=== PATIENT | male | born 1965 | race Two or more races ===

== ENCOUNTER 2018-07-17 08:37 | Inpatient (IN) | payer OTHER ==
[~2018-07-17] VITALS: Ht 175.3 cm; Wt 99.3 kg
[2018-07-17] MEDS ORDERED: ABILIFY2 MG ORAL (08:47)
--- NOTE | 2018-07-17 09:09 | Emergency Room Report ---
History of Present Illness General Chief Complaint: Chest Pain Source: Patient Present Illness HPI Patient presents with complaints of syncopal episode Reports that his bosses made him come to the hospital today Patient gives a history of coma and CVA 2 years ago patient reports being in a coma for 30 days at [facility] Patient reports being HIV positive also reports seeing his physician last week and was told to go to the emergency room Now patient reports that he was at another hospital he thinks [facility] for 3 days 2 weeks ago Patient also reports 1 other visit to another emergency room about a month ago however cannot give specifics Patient reports that after 3 days of hospitalization he was told to go home on both visits Currently denies headache Denies any chest pain However patient feels increased dyspnea with exertion Denies any back or flank pain Patient reports residual weakness on the left side from his stroke Allergies: Coded Allergies: No Known Allergies (Unverified , 07/17/18) Patient History Past Medical History: see triage record Pertinent Family History: none Reviewed Nursing Documentation: PMH: Agreed; PSxH: Agreed Nursing Documentation-PMH Hx Cardiac Problems: No - HIV History Of Psychiatric Problem: Yes - SCHIZO Review of Systems All Other Systems: negative except mentioned in HPI Physical Exam Vital Signs Date Time Temp Pulse Resp B/P (MAP) Pulse Ox O2 Delivery O2 Flow Rate FiO2 07/17/18 08:40 97.9 98 16 112/76 95 Room Air Sp02 EP Interpretation: reviewed, normal General Appearance: no apparent distress Head: normocephalic, atraumatic Eyes: bilateral eye PERRL, bilateral eye EOMI ENT: hearing grossly normal, normal pharynx, TMs + canals normal, uvula midline Neck: full range of motion, supple, no meningismus, no bony tend Respiratory: lungs clear, normal breath sounds, no rhonchi, no respiratory distress, no retraction, no accessory muscle use Cardiovascular #1: normal peripheral pulses, regular rate, rhythm, no edema, no gallop, no JVD, no murmur Gastrointestinal: normal bowel sounds, non tender, soft, no mass, no organomegaly, non-distended, no guarding, no hernia, no pulsatile mass, no rebound Genitourinary: no CVA tenderness Musculoskeletal: other - Some minimal weakness on the left upper extremity including feltmaker compared to right otherwise ambulates appropriately Neurologic: oriented x3, responsive, motor strength/tone normal, sensory intact Psychiatric: mood/affect normal Skin: normal color, no rash, warm/dry, palpation normal Lymphatic: normal inspection, no adenopathy Medical Decision Making Diagnostic Impression: Primary Impression: Syncope ER Course Patient is a fairly complex patient with multiple differential to consideration including but not limited to cardiac cardiopulmonary and vascular emergencies Patient's blood work reveals elevated lactic acid X-ray imaging does not show any acute disease Patient's lapse of consciousness was short duration there is no postictal state patient does not meet criteria for acute imaging Further hydration is provided and patient requires admission for further care Labs Test 07/17/18 09:20 07/17/18 09:30 07/17/18 09:45 07/17/18 10:55 Arterial Blood pH 7.456 (7.350-7.450) Arterial Blood Partial Pressure CO2 33.1 mmHg (35.0-45.0) Arterial Blood Partial Pressure O2 69.9 mmHg (75.0-100.0) Arterial Blood HCO3 22.8 mmol/L (22.0-26.0) Arterial Blood Oxygen Saturation 93.8 % (95-100) Arterial Blood Base Excess -0.3 (-2-2) White Blood Count 7.1 K/UL (4.8-10.8) Red Blood Count 6.38 M/UL (4.70-6.10) Hemoglobin 16.0 G/DL (14.2-18.0) Hematocrit 52.3 % (42.0-52.0) Mean Corpuscular Volume 82 FL (80-99) Mean Corpuscular Hemoglobin 25.0 PG (27.0-31.0) Mean Corpuscular Hemoglobin Concent 30.5 G/DL (32.0-36.0) Red Cell Distribution Width 17.1 % (11.6-14.8) Platelet Count 150 K/UL (150-450) Mean Platelet Volume 11.3 FL (6.5-10.1) Neutrophils (%) (Auto) 55.7 % (45.0-75.0) Lymphocytes (%) (Auto) 30.9 % (20.0-45.0) Monocytes (%) (Auto) 7.7 % (1.0-10.0) Eosinophils (%) (Auto) 3.1 % (0.0-3.0) Basophils (%) (Auto) 2.6 % (0.0-2.0) Sodium Level 144 MMOL/L (136-145) Potassium Level 4.2 MMOL/L (3.5-5.1) Chloride Level 108 MMOL/L (98-107) Carbon Dioxide Level 29 MMOL/L (21-32) Anion Gap 7 mmol/L (5-15) Blood Urea Nitrogen 21 mg/dL (7-18) Creatinine 1.5 MG/DL (0.55-1.30) Estimat Glomerular Filtration Rate 49.3 mL/min (>60) Glucose Level 81 MG/DL (74-106) Lactic Acid Level 4.00 mmol/L (0.4-2.0) 1.80 mmol/L (0.66-2.22) Calcium Level 9.1 MG/DL (8.5-10.1) Total Bilirubin 0.9 MG/DL (0.2-1.0) Aspartate Amino Transf (AST/SGOT) 37 U/L (15-37) Alanine Aminotransferase (ALT/SGPT) 46 U/L (12-78) Alkaline Phosphatase 187 U/L (46-116) Total Creatine Kinase 43 U/L (26-308) Creatine Kinase MB 2.1 NG/ML (0.0-3.6) Creatine Kinase MB Relative Index 4.8 Troponin I 0.023 ng/mL (0.000-0.056) Pro-B-Type Natriuretic Peptide 581 pg/mL (0-125) Total Protein 7.5 G/DL (6.4-8.2) Albumin 3.2 G/DL (3.4-5.0) Globulin 4.3 g/dL Albumin/Globulin Ratio 0.7 (1.0-2.7) Lipase 88 U/L (73-393) Urine Color Yellow Urine Appearance Clear Urine pH 6 (4.5-8.0) Urine Specific [place] 1.015 (1.005-1.035) Urine Protein Negative (NEGATIVE) Urine Glucose (UA) Negative (NEGATIVE) Urine Ketones Negative (NEGATIVE) Urine Blood Negative (NEGATIVE) Urine Nitrite Negative (NEGATIVE) Urine Bilirubin Negative (NEGATIVE) Urine Urobilinogen 1 MG/DL (0.0-1.0) Urine Leukocyte Esterase Negative (NEGATIVE) Urine Opiates Screen Negative (NEGATIVE) Urine Barbiturates Screen Negative (NEGATIVE) Phencyclidine (PCP) Screen Negative (NEGATIVE) Urine Amphetamines Screen Positive (NEGATIVE) Urine Benzodiazepines Screen Negative (NEGATIVE) Urine Cocaine Screen Negative (NEGATIVE) Urine Marijuana (THC) Screen Positive (NEGATIVE) EKG Diagnostic Results Rate: normal Rhythm: NSR ST Segments: no acute changes Rhythm Strip Diag. Results EP Interpretation: yes Rate: 85 Rhythm: NSR, no PVC's, no ectopy Chest X-Ray Diagnostic Results Chest X-Ray Diagnostic Results : Chest X-Ray Ordered: Yes # of Views/Limited/Complete: 1 View Indication: Chest Pain EP Interpretation: Yes Interpretation: no consolidation, no effusion, no pneumothorax Impression: No acute disease Electronically Signed by: Rosalia Santillan DO Last Vital Signs Date Time Temp Pulse Resp B/P (MAP) Pulse Ox O2 Delivery O2 Flow Rate FiO2 07/17/18 08:40 97.9 98 16 112/76 95 Room Air Status: improved Disposition: ADMITTED INPATIENT Condition: Serious Rosalia Santillan DO Jul 17, 2018 09:09
[2018-07-17 09:50] VITALS: BP 111/85
[2018-07-17 10:00] LABS: APPEARANCE,URINE CLEAR; BILIRUBIN, URINE NEGATIVE (NEGATIVE); COLOR,URINE YELLOW; GLUCOSE, URINE (UA) NEGATIVE (NEGATIVE); KETONES,URINE NEGATIVE (NEGATIVE); LEUKOCYTE ESTERASE ,URINE NEGATIVE (NEGATIVE); NITRITE,URINE NEGATIVE (NEGATIVE); PH,URINE 6 (4.5-8.0); PROTEIN,URINE NEGATIVE (NEGATIVE); UROBILINOGEN,URINE 1 MG/DL (0.0-1.0)
[2018-07-17 10:00] LABS: BASOPHILS % (AUTO) 2.6 % (0.0-2.0); EOSINOPHILS % (AUTO) 3.1 % (0.0-3.0); HEMATOCRIT 52.3 % (42.0-52.0); LYMPHOCYTES % (AUTO) 30.9 % (20.0-45.0); MEAN CORPUSCULAR VOLUME 82 FL (80-99); MONOCYTES % (AUTO) 7.7 % (1.0-10.0); NEUTROPHILS % (AUTO) 55.7 % (45.0-75.0); PLATELET COUNT 150 K/UL (150-450); RED BLOOD COUNT 6.38 M/UL (4.70-6.10); RED CELL DISTRIBUTION WIDTH 17.1 % (11.6-14.8); WHITE BLOOD COUNT 7.1 K/UL (4.8-10.8)
[2018-07-17 10:18] LABS: ANION GAP 7 mmol/L (5-15); BLOOD UREA NITROGEN 21 mg/dL (7-18); CALCIUM 9.1 MG/DL (8.5-10.1); CARBON DIOXIDE 29 MMOL/L (21-32); CHLORIDE 108 MMOL/L (98-107); CREATININE 1.5 MG/DL (0.55-1.30); POTASSIUM 4.2 MMOL/L (3.5-5.1); SODIUM 144 MMOL/L (136-145)
[2018-07-17 10:39] LABS: ALANINE AMINOTRANSFERASE 46 U/L (12-78); ALBUMIN 3.2 G/DL (3.4-5.0); ALBUMIN/GLOBULIN RATIO 0.7 (1.0-2.7); ALKALINE PHOSPHATASE 187 U/L (46-116); ASPARTATE AMINO TRANSFERASE 37 U/L (15-37); BILIRUBIN,TOTAL 0.9 MG/DL (0.2-1.0); CKMB 2.1 NG/ML (0.0-3.6); CREATINE KINASE 43 U/L (26-308)
[2018-07-17 11:00] VITALS: BP 128/87
--- NOTE | 2018-07-17 11:02 | Diagnostic Imaging Report ---
Indication: Shortness of breath Technique: One view of the chest Comparison: none Findings: Lungs and pleural spaces are clear. Heart size is normal Impression: No acute process
[2018-07-17 11:59] VITALS: BP 122/68
[2018-07-17 13:15] VITALS: BP 124/106
[2018-07-17] MEDS ORDERED: NEURONTIN300 MG ORAL (14:06)
[2018-07-17] MEDS ORDERED: REMERON15 M1 ORAL (14:06)
[2018-07-17] MEDS ORDERED: Acetaminophen 500mg (ES) tab ORAL PRN (14:30)
[2018-07-17 16:00] VITALS: BP 127/98
--- NOTE | 2018-07-17 17:10 | Cardiac Electrophysiology PN ---
Subjective Subjective [id number] Objective Last 24 Hour Vital Signs Date Time Temp Pulse Resp B/P (MAP) Pulse Ox O2 Delivery O2 Flow Rate FiO2 07/17/18 16:00 97.7 94 20 127/98 (108) 96 07/17/18 13:30 Room Air 07/17/18 13:25 98.7 87 16 121/68 100 Room Air 07/17/18 13:15 97.2 91 20 124/106 (112) 96 07/17/18 11:59 98.1 80 16 122/68 98 Room Air 07/17/18 11:00 97.0 80 16 128/87 99 Room Air 07/17/18 09:50 98 22 Room Air 07/17/18 09:50 97.0 98 22 111/85 99 Room Air 07/17/18 08:40 97.9 98 16 112/76 95 Room Air Laboratory Tests Test 07/17/18 09:20 07/17/18 09:30 07/17/18 09:45 07/17/18 10:55 Arterial Blood pH 7.456 (7.350-7.450) Arterial Blood Partial Pressure CO2 33.1 mmHg (35.0-45.0) L Arterial Blood Partial Pressure O2 69.9 mmHg (75.0-100.0) L Arterial Blood HCO3 22.8 mmol/L (22.0-26.0) Arterial Blood Oxygen Saturation 93.8 % (95-100) L Arterial Blood Base Excess -0.3 (-2-2) Robinson Test Pending White Blood Count 7.1 K/UL (4.8-10.8) Red Blood Count 6.38 M/UL (4.70-6.10) H Hemoglobin 16.0 G/DL (14.2-18.0) Hematocrit 52.3 % (42.0-52.0) H Mean Corpuscular Volume 82 FL (80-99) Mean Corpuscular Hemoglobin 25.0 PG (27.0-31.0) L Mean Corpuscular Hemoglobin Concent 30.5 G/DL (32.0-36.0) L Red Cell Distribution Width 17.1 % (11.6-14.8) H Platelet Count 150 K/UL (150-450) Mean Platelet Volume 11.3 FL (6.5-10.1) H Neutrophils (%) (Auto) 55.7 % (45.0-75.0) Lymphocytes (%) (Auto) 30.9 % (20.0-45.0) Monocytes (%) (Auto) 7.7 % (1.0-10.0) Eosinophils (%) (Auto) 3.1 % (0.0-3.0) H Basophils (%) (Auto) 2.6 % (0.0-2.0) H Sodium Level 144 MMOL/L (136-145) Potassium Level 4.2 MMOL/L (3.5-5.1) Chloride Level 108 MMOL/L (98-107) H Carbon Dioxide Level 29 MMOL/L (21-32) Anion Gap 7 mmol/L (5-15) Blood Urea Nitrogen 21 mg/dL (7-18) H Creatinine 1.5 MG/DL (0.55-1.30) H Estimat Glomerular Filtration Rate 49.3 mL/min (>60) Glucose Level 81 MG/DL (74-106) Lactic Acid Level 4.00 mmol/L (0.4-2.0) H 1.80 mmol/L (0.66-2.22) Calcium Level 9.1 MG/DL (8.5-10.1) Total Bilirubin 0.9 MG/DL (0.2-1.0) Aspartate Amino Transf (AST/SGOT) 37 U/L (15-37) Alanine Aminotransferase (ALT/SGPT) 46 U/L (12-78) Alkaline Phosphatase 187 U/L (46-116) H Total Creatine Kinase 43 U/L (26-308) Creatine Kinase MB 2.1 NG/ML (0.0-3.6) Creatine Kinase MB Relative Index 4.8 Troponin I 0.023 ng/mL (0.000-0.056) Pro-B-Type Natriuretic Peptide 581 pg/mL (0-125) H Total Protein 7.5 G/DL (6.4-8.2) Albumin 3.2 G/DL (3.4-5.0) L Globulin 4.3 g/dL Albumin/Globulin Ratio 0.7 (1.0-2.7) L Lipase 88 U/L (73-393) Urine Color Yellow Urine Appearance Clear Urine pH 6 (4.5-8.0) Urine Specific [place] 1.015 (1.005-1.035) Urine Protein Negative (NEGATIVE) Urine Glucose (UA) Negative (NEGATIVE) Urine Ketones Negative (NEGATIVE) Urine Blood Negative (NEGATIVE) Urine Nitrite Negative (NEGATIVE) Urine Bilirubin Negative (NEGATIVE) Urine Urobilinogen 1 MG/DL (0.0-1.0) H Urine Leukocyte Esterase Negative (NEGATIVE) Urine Opiates Screen Negative (NEGATIVE) Urine Barbiturates Screen Negative (NEGATIVE) Phencyclidine (PCP) Screen Negative (NEGATIVE) Urine Amphetamines Screen Positive (NEGATIVE) H Urine Benzodiazepines Screen Negative (NEGATIVE) Urine Cocaine Screen Negative (NEGATIVE) Urine Marijuana (THC) Screen Positive (NEGATIVE) H Microbiology Date/Time Source Procedure Growth Status 07/17/18 09:30 Rectum Received Basim Adkins MD Jul 17, 2018 17:10
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
[2018-07-17 20:00] VITALS: BP 121/87
--- NOTE | 2018-07-17 21:00 | Consultation ---
DATE OF CONSULTATION: 07/17/2018 CARDIOLOGY CONSULTATION CONSULTING PHYSICIAN: Basim Adkins M.D. REFERRING PHYSICIAN: Rosalia Alexander M.D. REASON FOR CONSULTATION: Syncope. HISTORY OF PRESENT ILLNESS: The patient is a 53-year-old gentleman with history of HIV with undetectable viral load as well as history of CVA for which he was in a coma for about a month at [facility] two years ago. The patient came to the emergency room with recurrent episodes of syncope. The patient also has left-sided weakness because of his prior stroke. The patient stated that come to the hospital after he had a syncopal episode. The patient was evaluated in the emergency room. Cardiology consultation was obtained for further evaluation and management. REVIEW OF SYSTEMS: Negative other than what was mentioned in history of present illness. PAST MEDICAL HISTORY: As mentioned above. FAMILY HISTORY: Noncontributory. SOCIAL HISTORY: He lives at home. Does not smoke or drink alcohol. PHYSICAL EXAMINATION: VITAL SIGNS: Blood pressure is 127/90, pulse 94, respirations 18, and he is afebrile. HEAD AND NECK: Showed no JVD. LUNGS: Clear. CARDIOVASCULAR: Shows regular S1 and S2 with no gallop or murmur. ABDOMEN: Soft. EXTREMITIES: No pitting edema. LABORATORY DATA: White count 7.1, hematocrit 16, hematocrit 52, and platelet count 150. Sodium is 144, potassium 4.2, BUN 21, and creatinine 1.5. His first troponin is negative. ASSESSMENT AND PLAN: 1. Recurrent syncopal episodes. We will watch the patient on telemetry, get an echocardiogram and carotid duplex. Neuro evaluation is also pending. 2. Human immunodeficiency virus, on anti-retroviral therapy. 3. History of psychosis, on Abilify, Remeron, and Neurontin. 4. 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 Thank you very much, Dr. Alexander, for allowing me to participate in the care of this patient. Please do not hesitate to contact me for any questions regarding my evaluation. Basim Adkins M.D. : DAREN JOB#: [id number] CC:
[2018-07-18] VITALS: BP 103/70
[2018-07-18] MEDS ORDERED: ATRIPLA TABLET1 EAC1 ORAL (03:40)
[2018-07-18 04:00] VITALS: BP 110/80
[2018-07-18 08:00] VITALS: BP 126/92
--- NOTE | 2018-07-18 10:51 | Consultation ---
History of Present Illness General Chief Complaint: Chest Pain Present Illness HPI the pt is a 53 yo male who has a history of anxiety. depression, seizures, CVA, syncopal episode and elevated troponin. the pt pw anxiety, depressed mood, anhedonia, insomnia and low energy. The pt is not suicidal or homicidal. the stated that he has been more anxious than usual. The pt is not psychotic/manic. Allergies: Coded Allergies: No Known Allergies (Unverified , 07/17/18) Medication History Scheduled Aripiprazole* (Abilify*), 5 MG ORAL DAILY, (Reported) Efavirenz/Emtricitab/Tenofovir (Atripla), 1 TAB ORAL DAILY, (Reported) Gabapentin (Neurontin), 300 MG ORAL THREE TIMES A DAY, (Reported) Mirtazapine (Remeron), 5 MG ORAL BEDTIME, (Reported) Patient History History Provided By: Patient, Medical Record, PMD Healthcare decision maker sister Resuscitation status Full Code Advanced Directive on File Past Medical/Surgical History Past Medical/Surgical History: (1) Syncope Review of Systems Psychiatric: Reports: anxiety, depressed feelings, emotional problems Physical Exam General Appearance: alert, moderate distress, agitated Neurologic: oriented x 3, responsive, depressed affect Last 24 Hour Vital Signs Date Time Temp Pulse Resp B/P (MAP) Pulse Ox O2 Delivery O2 Flow Rate FiO2 07/18/18 08:00 97.2 88 18 126/92 (103) 95 07/18/18 04:00 96.8 74 18 110/80 (90) 96 07/18/18 03:19 97 07/18/18 00:00 97.2 91 17 103/70 (81) 96 07/17/18 23:40 91 07/17/18 21:00 Nasal Cannula 2.0 07/17/18 20:00 97.2 74 17 121/87 (98) 96 07/17/18 19:34 92 07/17/18 16:35 88 07/17/18 16:00 97.7 94 20 127/98 (108) 96 07/17/18 13:30 Room Air 07/17/18 13:25 98.7 87 16 121/68 100 Room Air 07/17/18 13:15 97.2 91 20 124/106 (112) 96 07/17/18 11:59 98.1 80 16 122/68 98 Room Air 07/17/18 11:00 97.0 80 16 128/87 99 Room Air Intake and Output 07/17/18 07/18/18 19:00 07:00 Intake Total 120 ml Output Total 150 ml Balance 120 ml -150 ml Intake Oral 120 ml Output Urine Total 150 ml # Voids 3 Laboratory Tests Test 07/17/18 10:55 07/18/18 06:22 Lactic Acid Level 1.80 mmol/L (0.66-2.22) Thyroid Stimulating Hormone (TSH) 2.677 uiU/mL (0.358-3.740) Free Thyroxine 1.18 NG/DL (0.76-1.46) Height (Feet): 5 Height (Inches): 9.00 Weight (Pounds): 219 Medications Current Medications Medications (Trade) Dose Ordered Sig/Mary Ann Route PRN Reason Start Time Stop Time Status Last Admin Dose Admin Acetaminophen (Tylenol) 500 mg Q4H PRN ORAL Mild Pain/Temp > 100.5 07/17/18 14:30 08/16/18 14:29 07/18/18 03:38 Al Hydroxide/Mg Hydroxide (Mylanta) 30 ml Q4H PRN ORAL GERD 07/18/18 06:45 08/17/18 06:44 Aripiprazole (Abilify) 5 mg DAILY ORAL 07/18/18 09:00 08/17/18 08:59 07/18/18 08:10 Gabapentin (Neurontin) 300 mg THREE TIMES A DAY ORAL 07/17/18 18:00 08/16/18 17:59 07/18/18 08:10 Lansoprazole (Prevacid) 30 mg DAILY ORAL 07/18/18 09:00 08/17/18 08:59 07/18/18 08:10 Mirtazapine (Remeron) 5 mg BEDTIME ORAL 07/17/18 21:00 08/16/18 20:59 UNV Assessment/Plan Problem List: (1) MDD (major depressive disorder), recurrent episode, moderate ICD Codes: F33.1 - Major depressive disorder, recurrent, moderate SNOMED: 72773333, 086779176 (2) Anxiety disorder ICD Codes: F41.9 - Anxiety disorder, unspecified SNOMED: 421814367 Assessment/Plan Abilify 15mg po qam Remeron 15mg po qhs Ativan po q 6hr prn anxiety the pt was provided ro/Angela Knight MD Jul 18, 2018 10:51
[2018-07-18] MEDS ORDERED: LORazepam 1mg tab ORAL PRN (11:00)
--- NOTE | 2018-07-18 11:40 | Consultation ---
Consult Note Consult Note I was asked to eval this patient at the request of Dr Alexander Admitted for Syncope Has Cr 1.5 has amphetamines and MJ in urine Patient presents with complaints of syncopal episode Reports that his bosses made him come to the hospital today Patient gives a history of coma and CVA 2 years ago patient reports being in a coma for 30 days at [facility] Patient reports being HIV positive also reports seeing his physician last week and was told to go to the emergency room Now patient reports that he was at another hospital he thinks [facility] for 3 days 2 weeks ago Patient also reports 1 other visit to another emergency room about a month ago however cannot give specifics Patient reports that after 3 days of hospitalization he was told to go home on both visits Currently denies headache Denies any chest pain However patient feels increased dyspnea with exertion Denies any back or flank pain Patient reports residual weakness on the left side from his stroke No Known Allergies (Unverified , 07/17/18) Assessment/Plan Renal failure, Likely Dehydration Recurrent syncope rule out Sz disorder Obese HIV status h/o Psychosis s/p CVA with left melvin ? Multi drug abuse Hydrate EEG Monitor renal parameters per orders Rob Mitchell MD Jul 18, 2018 11:40
[2018-07-18 12:00] VITALS: BP 127/95
[2018-07-18] MEDS: D5 1/2NS 1,000 ML IV SCH ×3 (13:22→23:35)
--- NOTE | 2018-07-18 14:52 | Cardiac Electrophysiology PN ---
Assessment/Plan Assessment/Plan 1. Recurrent syncopal episodes. No arrhythmias on telemetry, Echocardiogram and carotid duplex were negative. Orthostatic vital signs were negative. Neuro evaluation is pending. 2. Human immunodeficiency virus, on anti-retroviral therapy. 3. History of psychosis, on Abilify, Remeron, and Neurontin. 4. 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 DW Dr Alexander Subjective Subjective Still complains of syncope but no arrhythmias on tele.Echo Nl EF. Orthostatic vitals were negative Objective Last 24 Hour Vital Signs Date Time Temp Pulse Resp B/P (MAP) Pulse Ox O2 Delivery O2 Flow Rate FiO2 07/18/18 14:15 94 102 137 07/18/18 12:00 97.9 94 18 127/95 (106) 96 07/18/18 11:42 88 07/18/18 09:00 Room Air 07/18/18 08:00 97.2 88 18 126/92 (103) 95 07/18/18 07:57 98 07/18/18 04:00 96.8 74 18 110/80 (90) 96 07/18/18 03:19 97 07/18/18 00:00 97.2 91 17 103/70 (81) 96 07/17/18 23:40 91 07/17/18 21:00 Nasal Cannula 2.0 07/17/18 20:00 97.2 74 17 121/87 (98) 96 07/17/18 19:34 92 07/17/18 16:35 88 07/17/18 16:00 97.7 94 20 127/98 (108) 96 Intake and Output 07/17/18 07/18/18 19:00 07:00 Intake Total 120 ml Output Total 150 ml Balance 120 ml -150 ml Intake Oral 120 ml Output Urine Total 150 ml # Voids 3 Laboratory Tests Test 07/18/18 06:22 C-Reactive Protein, Quantitative < 0.4 mg/dL (0.00-0.90) Thyroid Stimulating Hormone (TSH) 2.677 uiU/mL (0.358-3.740) Free Thyroxine 1.18 NG/DL (0.76-1.46) Microbiology Date/Time Source Procedure Growth Status 07/17/18 09:30 Rectum Received Objective HEAD AND NECK: No JVD. LUNGS: Clear. CARDIOVASCULAR: Shows regular S1 and S2 with no gallop or murmur. ABDOMEN: Soft. EXTREMITIES: No pitting edema. Basim Adkins MD Jul 18, 2018 14:51
--- NOTE | 2018-07-18 15:41 | General Progress Note ---
Assessment/Plan Problem List: (1) Syncope ICD Codes: R55 - Syncope and collapse SNOMED: 374477373 (2) Anxiety disorder ICD Codes: F41.9 - Anxiety disorder, unspecified SNOMED: 695121680 (3) MDD (major depressive disorder), recurrent episode, moderate ICD Codes: F33.1 - Major depressive disorder, recurrent, moderate SNOMED: 40401436, 525647046 Status: progressing Assessment/Plan syncope recurrent awaiting input from neurologist anxiety Subjective ROS Limited/Unobtainable: Yes Constitutional: Reports: no symptoms HEENT: Reports: no symptoms Allergies: Coded Allergies: No Known Allergies (Unverified , 07/17/18) Objective Last 24 Hour Vital Signs Date Time Temp Pulse Resp B/P (MAP) Pulse Ox O2 Delivery O2 Flow Rate FiO2 07/18/18 14:15 94 102 137 07/18/18 12:00 97.9 94 18 127/95 (106) 96 07/18/18 11:42 88 07/18/18 09:00 Room Air 07/18/18 08:00 97.2 88 18 126/92 (103) 95 07/18/18 07:57 98 07/18/18 04:00 96.8 74 18 110/80 (90) 96 07/18/18 03:19 97 07/18/18 00:00 97.2 91 17 103/70 (81) 96 07/17/18 23:40 91 07/17/18 21:00 Nasal Cannula 2.0 07/17/18 20:00 97.2 74 17 121/87 (98) 96 07/17/18 19:34 92 07/17/18 16:35 88 07/17/18 16:00 97.7 94 20 127/98 (108) 96 Intake and Output 07/17/18 07/18/18 19:00 07:00 Intake Total 120 ml Output Total 150 ml Balance 120 ml -150 ml Intake Oral 120 ml Output Urine Total 150 ml # Voids 3 Laboratory Tests 07/18/18 06:22: C-Reactive Protein, Quantitative < 0.4, Thyroid Stimulating Hormone (TSH) 2.677 , Free Thyroxine 1.18 Height (Feet): 5 Height (Inches): 9.00 Weight (Pounds): 219 Neck: supple Cardiovascular: normal rate Respiratory/Chest: lungs clear Abdomen: soft Hadadz,Ali MD Jul 18, 2018 15:41
--- NOTE | 2018-07-18 15:49 | Cardiology Report ---
APPROVED REPORT EXAM: Two-dimensional and M-mode echocardiogram with Doppler and color Doppler. INDICATION Syncope M-Mode DIMENSIONS IVSd1.0 (0.7-1.1cm)Left Atrium (MM)3.9 (1.6-4.0cm) LVDd3.6 (3.5-5.6cm)Aortic Root3.6 (2.0-3.7cm) PWd1.3 (0.7-1.1cm)Aortic Cusp Exc.1.9 (1.5-2.0cm) LVDs2.1 (2.5-4.0cm) PWs1.4 cm Technically difficult study due to poor acoustical windows. Normal left ventricular chamber size, systolic function and wall motion to extent visualized. This study precludes full analysis of LV segmental wall motion. Left ventricular ejection fraction estimated to be 50-55%. No evidence of left ventricular hypertrophy. No evidence of pericardial effusion. Left atrial size is within normal limits. Right atrial size is moderately enlarged. Right ventricular chamber sizes is within normal limits. Focal aortic valve sclerosis with adequate cusp excursion. Thickened mitral valve leaflets with normal excursion. Mitral annulus and aortic root calcification. Pulmonic valve not well visualized. Normal tricuspid valve structure. IVC dilated at 2.9 cm with slight physiologic collapse, suggestive of increased RA pressure. A color flow and spectral Doppler study was performed and revealed: No aortic insufficiency. Trace mitral regurgitation. Mitral diastolic velocities suggest reduced left ventricular relaxation c/w mild LV diastolic dysfunction (Grade I) Moderate to severe tricuspid regurgitation. Tricuspid systolic velocities suggests peak right ventricular systolic pressure of 94 mmHg, consistent with severe pulmonary hypertension.
--- NOTE | 2018-07-18 15:50 | Cardiology Report ---
APPROVED REPORT EKG Measurement Heart [id number] [id number] Normal sinus rhythm Left axis deviation Prolonged QT Abnormal ECG
[2018-07-18 16:00] VITALS: BP 129/93
--- NOTE | 2018-07-18 16:09 | Cardiology Report ---
APPROVED REPORT EKG Measurement Heart [id number] [id number] Normal sinus rhythm Incomplete right bundle branch block Left anterior fascicular block Prolonged QT Abnormal ECG
[2018-07-18 20:00] VITALS: BP 128/94
[2018-07-18] MEDS: Tamsulosin 0.4mg cap ORAL SCH (20:59)
[2018-07-19] VITALS: BP 140/75
[2018-07-19 04:00] VITALS: BP 117/81
[2018-07-19 08:00] VITALS: BP 124/95
[2018-07-19] MEDS: D5 1/2NS 1,000 ML IV SCH ×2 (08:32→17:08)
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
--- NOTE | 2018-07-19 11:12 | General Progress Note ---
Assessment/Plan Problem List: (1) MDD (major depressive disorder), recurrent episode, moderate ICD Codes: F33.1 - Major depressive disorder, recurrent, moderate SNOMED: 21451914, 479703493 (2) Anxiety disorder ICD Codes: F41.9 - Anxiety disorder, unspecified SNOMED: 855714846 Status: stable Assessment/Plan Abilify 15mg po qam Remeron 15mg po qhs Ativan po q 6hr prn anxiety the pt was provided ro/st the script was left in the chart for the pt. Subjective Neurologic/Psychiatric: Reports: anxiety, depressed, emotional problems Allergies: Coded Allergies: No Known Allergies (Unverified , 07/17/18) Subjective The pt is doing better. He is less anxious. The pt sleep and appetite better. No si/hi. Objective Last 24 Hour Vital Signs Date Time Temp Pulse Resp B/P (MAP) Pulse Ox O2 Delivery O2 Flow Rate FiO2 07/19/18 09:00 Room Air 07/19/18 08:00 97.5 94 18 124/95 (105) 96 07/19/18 07:23 85 07/19/18 04:00 86 07/19/18 04:00 88 97 94 07/19/18 04:00 97.6 86 18 117/81 (93) 95 07/19/18 00:00 88 07/19/18 00:00 98.0 88 18 140/75 (96) 96 07/18/18 21:00 Room Air 07/18/18 20:00 94 07/18/18 20:00 98.0 94 18 128/94 (105) 96 07/18/18 16:00 97.8 91 18 129/93 (105) 96 07/18/18 15:15 91 07/18/18 14:15 94 102 137 07/18/18 12:00 97.9 94 18 127/95 (106) 96 07/18/18 11:42 88 Intake and Output 07/18/18 07/19/18 19:00 07:00 Intake Total 560 ml 1100 ml Output Total 1450 ml Balance -890 ml 1100 ml Intake Oral 360 ml IV Total 200 ml 1100 ml Output Urine Total 1450 ml # Voids 2 Height (Feet): 5 Height (Inches): 9.00 Weight (Pounds): 219 General Appearance: WD/WN, no apparent distress, alert, overweight Neurologic: alert, oriented x 3, responsive, depressed affect Angela Coleman MD Jul 19, 2018 11:12
[2018-07-19 11:50] LABS: BASOPHILS % (AUTO) 2.1 % (0.0-2.0); EOSINOPHILS % (AUTO) 4.5 % (0.0-3.0); HEMATOCRIT 44.8 % (42.0-52.0); HEMOGLOBIN 14.1 G/DL (14.2-18.0); LYMPHOCYTES % (AUTO) 30.4 % (20.0-45.0); MEAN CORPUSCULAR VOLUME 81 FL (80-99); MONOCYTES % (AUTO) 10.3 % (1.0-10.0); NEUTROPHILS % (AUTO) 52.7 % (45.0-75.0); PLATELET COUNT 101 K/UL (150-450); RED BLOOD COUNT 5.51 M/UL (4.70-6.10); RED CELL DISTRIBUTION WIDTH 17.1 % (11.6-14.8)
[2018-07-19 12:00] VITALS: BP 121/89
--- NOTE | 2018-07-19 12:15 | Consultation ---
DATE OF CONSULTATION: 07/18/2018 ADDENDUM: The patient is also on Flomax, which can cause syncope. In fact, it can cause orthostatic hypotension or usually does it after the first dose. As long as the dehydration, any other risk factors for syncope may be significant. Asael Glasgow MD DR: RYANNE JOB#: [id number] CC:
--- NOTE | 2018-07-19 12:24 | General Progress Note ---
Assessment/Plan Problem List: (1) Syncope ICD Codes: R55 - Syncope and collapse SNOMED: 773926241 (2) Anxiety disorder ICD Codes: F41.9 - Anxiety disorder, unspecified SNOMED: 962906739 (3) MDD (major depressive disorder), recurrent episode, moderate ICD Codes: F33.1 - Major depressive disorder, recurrent, moderate SNOMED: 54094777, 210308365 Status: progressing Assessment/Plan syncope recurrent awaiting input from neurologist no arrythmia eeg is done Subjective ROS Limited/Unobtainable: Yes HEENT: Reports: no symptoms Cardiovascular: Reports: no symptoms Allergies: Coded Allergies: No Known Allergies (Unverified , 07/17/18) Objective Last 24 Hour Vital Signs Date Time Temp Pulse Resp B/P (MAP) Pulse Ox O2 Delivery O2 Flow Rate FiO2 07/19/18 09:00 Room Air 07/19/18 08:00 97.5 94 18 124/95 (105) 96 07/19/18 07:23 85 07/19/18 04:00 86 07/19/18 04:00 88 97 94 07/19/18 04:00 97.6 86 18 117/81 (93) 95 07/19/18 00:00 88 07/19/18 00:00 98.0 88 18 140/75 (96) 96 07/18/18 21:00 Room Air 07/18/18 20:00 94 07/18/18 20:00 98.0 94 18 128/94 (105) 96 07/18/18 16:00 97.8 91 18 129/93 (105) 96 07/18/18 15:15 91 07/18/18 14:15 94 102 137 Intake and Output 07/18/18 07/19/18 19:00 07:00 Intake Total 560 ml 1100 ml Output Total 1450 ml Balance -890 ml 1100 ml Intake Oral 360 ml IV Total 200 ml 1100 ml Output Urine Total 1450 ml # Voids 2 Laboratory Tests 07/19/18 11:23: White Blood Count 5.0, Red Blood Count 5.51, Hemoglobin 14.1L, Hematocrit 44.8, Mean Corpuscular Volume 81, Mean Corpuscular Hemoglobin 25.6L, Mean Corpuscular Hemoglobin Concent 31.4L, Red Cell Distribution Width 17.1H, Platelet Count 101L , Mean Platelet Volume 11.8H, Neutrophils (%) (Auto) 52.7, Lymphocytes (%) (Auto ) 30.4, Monocytes (%) (Auto) 10.3H, Eosinophils (%) (Auto) 4.5H, Basophils (%) ( Auto) 2.1H, Sodium Level [Pending], Potassium Level [Pending], Chloride Level [ Pending], Carbon Dioxide Level [Pending], Blood Urea Nitrogen [Pending], Creatinine [Pending], Estimat Glomerular Filtration Rate [Pending], Glucose Level [Pending], Hemoglobin A1c [Pending], Uric Acid [Pending], Calcium Level [ Pending], Phosphorus Level [Pending], Magnesium Level [Pending], Total Bilirubin [Pending], Gamma Glutamyl Transpeptidase [Pending], Aspartate Amino Transf (AST/SGOT) [Pending], Alanine Aminotransferase (ALT/SGPT) [Pending], Alkaline Phosphatase [Pending], Total Creatine Kinase [Pending], Troponin I [ Pending], Pro-B-Type Natriuretic Peptide [Pending], Total Protein [Pending], Albumin [Pending], Globulin [Pending], Triglycerides Level [Pending], Cholesterol Level [Pending], LDL Cholesterol [Pending], HDL Cholesterol [Pending ], Cholesterol/HDL Ratio [Pending], Vitamin B12 Level [Pending], Folate [Pending ], Thyroid Stimulating Hormone (TSH) [Pending] Height (Feet): 5 Height (Inches): 9.00 Weight (Pounds): 219 Neck: supple Cardiovascular: normal rate Respiratory/Chest: lungs clear Abdomen: soft Rosalia Alexander MD Jul 19, 2018 12:24
[2018-07-19] MEDS ORDERED: Albuterol/Ipratropium 3ml neb HHN PRN (12:30)
[2018-07-19 13:09] LABS: ALANINE AMINOTRANSFERASE 44 U/L (12-78); ALBUMIN 2.9 G/DL (3.4-5.0); ALBUMIN/GLOBULIN RATIO 0.8 (1.0-2.7); ALKALINE PHOSPHATASE 155 U/L (46-116); ANION GAP 9 mmol/L (5-15); ASPARTATE AMINO TRANSFERASE 38 U/L (15-37); BILIRUBIN,TOTAL 1.3 MG/DL (0.2-1.0); BLOOD UREA NITROGEN 12 mg/dL (7-18); CALCIUM 8.8 MG/DL (8.5-10.1); CARBON DIOXIDE 25 MMOL/L (21-32); CHLORIDE 109 MMOL/L (98-107); CHOLESTEROL 124 MG/DL (< 200); CREATINE KINASE 46 U/L (26-308); CREATININE 1.3 MG/DL (0.55-1.30); GAMMA GLUTAMYL TRANSPEPTIDASE 221 U/L (5-85); HDL CHOLESTEROL 37 MG/DL (40-60); PHOSPHORUS 3.1 MG/DL (2.5-4.9); SODIUM 143 MMOL/L (136-145); TRIGLYCERIDES 62 MG/DL (30-150)
[2018-07-19 13:11] LABS: BILIRUBIN,DIRECT 0.3 MG/DL (0.0-0.3)
--- NOTE | 2018-07-19 14:16 | Nephrology Progress Note ---
Assessment/Plan Problem List: (1) Syncope (2) Dehydration (3) Drug abuse (4) HIV disease Assessment Renal failure, Likely Dehydration normalized Recurrent syncope rule out Sz disorder Obese HIV status h/o Psychosis s/p CVA with left melvin ? Multi drug abuse Plan Hydrate EEG WNL Carotid duplex pending Monitor renal parameters per orders per psych Objective Objective Last 24 Hour Vital Signs Date Time Temp Pulse Resp B/P (MAP) Pulse Ox O2 Delivery O2 Flow Rate FiO2 07/19/18 12:00 88 07/19/18 12:00 97.2 90 18 121/89 (100) 95 07/19/18 09:00 Room Air 07/19/18 08:00 97.5 94 18 124/95 (105) 96 07/19/18 07:23 85 07/19/18 04:00 86 07/19/18 04:00 88 97 94 07/19/18 04:00 97.6 86 18 117/81 (93) 95 07/19/18 00:00 88 07/19/18 00:00 98.0 88 18 140/75 (96) 96 07/18/18 21:00 Room Air 07/18/18 20:00 94 07/18/18 20:00 98.0 94 18 128/94 (105) 96 07/18/18 16:00 97.8 91 18 129/93 (105) 96 07/18/18 15:15 91 07/18/18 14:15 94 102 137 Intake and Output 07/18/18 07/19/18 19:00 07:00 Intake Total 560 ml 1100 ml Output Total 1450 ml Balance -890 ml 1100 ml Intake Oral 360 ml IV Total 200 ml 1100 ml Output Urine Total 1450 ml # Voids 2 Laboratory Tests 07/19/18 11:23: White Blood Count 5.0, Red Blood Count 5.51, Hemoglobin 14.1L, Hematocrit 44.8, Mean Corpuscular Volume 81, Mean Corpuscular Hemoglobin 25.6L, Mean Corpuscular Hemoglobin Concent 31.4L, Red Cell Distribution Width 17.1H, Platelet Count 101L , Mean Platelet Volume 11.8H, Neutrophils (%) (Auto) 52.7, Lymphocytes (%) (Auto ) 30.4, Monocytes (%) (Auto) 10.3H, Eosinophils (%) (Auto) 4.5H, Basophils (%) ( Auto) 2.1H, Sodium Level 143, Potassium Level 4.0, Chloride Level 109H, Carbon Dioxide Level 25, Anion Gap 9, Blood Urea Nitrogen 12, Creatinine 1.3, Estimat Glomerular Filtration Rate 58.2, Glucose Level 96, Hemoglobin A1c [Pending], Uric Acid 5.4, Calcium Level 8.8, Phosphorus Level 3.1, Magnesium Level 1.8, Total Bilirubin 1.3H, Direct Bilirubin 0.3, Gamma Glutamyl Transpeptidase 221H, Aspartate Amino Transf (AST/SGOT) 38H, Alanine Aminotransferase (ALT/SGPT) 44, Alkaline Phosphatase 155H, Total Creatine Kinase 46, Troponin I 0.021, Pro-B- Type Natriuretic Peptide 550H, Total Protein 6.7, Albumin 2.9L, Globulin 3.8, Albumin/Globulin Ratio 0.8L, Triglycerides Level 62, Cholesterol Level 124, LDL Cholesterol 88, HDL Cholesterol 37L, Cholesterol/HDL Ratio 3.4, Vitamin B12 Level 832, Folate 18.8, Thyroid Stimulating Hormone (TSH) 1.492 Height (Feet): 5 Height (Inches): 9.00 Weight (Pounds): 219 Rob Mitchell MD Jul 19, 2018 14:16
[2018-07-19 16:00] VITALS: BP 111/79
[2018-07-19] MEDS: Albuterol/Ipratropium 3ml neb HHN SCH ×3 (16:38→23:48)
--- NOTE | 2018-07-19 17:19 | Cardiac Electrophysiology PN ---
Assessment/Plan Assessment/Plan 1. Recurrent syncopal episodes. No arrhythmias on telemetry, Echocardiogram and carotid duplex were negative. Orthostatic vital signs were negative. Neuro evaluation in progress with Dr Glasgow 2. Human immunodeficiency virus, on anti-retroviral therapy. 3. Schizophrenia, on Abilify, Remeron, and Neurontin. 4. 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 DW Dr Glasgow and RN Subjective Subjective No arrhythmias on tele.Echo Nl EF. Orthostatic vitals were negative Objective Last 24 Hour Vital Signs Date Time Temp Pulse Resp B/P (MAP) Pulse Ox O2 Delivery O2 Flow Rate FiO2 07/19/18 16:48 86 20 96 Nasal Cannula 2.0 28 07/19/18 16:00 97.9 87 20 111/79 (90) 96 07/19/18 12:00 88 07/19/18 12:00 97.2 90 18 121/89 (100) 95 07/19/18 09:00 Room Air 07/19/18 08:00 97.5 94 18 124/95 (105) 96 07/19/18 07:23 85 07/19/18 04:00 86 07/19/18 04:00 88 97 94 07/19/18 04:00 97.6 86 18 117/81 (93) 95 07/19/18 00:00 88 07/19/18 00:00 98.0 88 18 140/75 (96) 96 07/18/18 21:00 Room Air 07/18/18 20:00 94 07/18/18 20:00 98.0 94 18 128/94 (105) 96 Intake and Output 07/18/18 07/19/18 19:00 07:00 Intake Total 560 ml 1100 ml Output Total 1450 ml Balance -890 ml 1100 ml Intake Oral 360 ml IV Total 200 ml 1100 ml Output Urine Total 1450 ml # Voids 2 Laboratory Tests Test 07/19/18 11:23 White Blood Count 5.0 K/UL (4.8-10.8) Red Blood Count 5.51 M/UL (4.70-6.10) Hemoglobin 14.1 G/DL (14.2-18.0) L Hematocrit 44.8 % (42.0-52.0) Mean Corpuscular Volume 81 FL (80-99) Mean Corpuscular Hemoglobin 25.6 PG (27.0-31.0) L Mean Corpuscular Hemoglobin Concent 31.4 G/DL (32.0-36.0) L Red Cell Distribution Width 17.1 % (11.6-14.8) H Platelet Count 101 K/UL (150-450) L Mean Platelet Volume 11.8 FL (6.5-10.1) H Neutrophils (%) (Auto) 52.7 % (45.0-75.0) Lymphocytes (%) (Auto) 30.4 % (20.0-45.0) Monocytes (%) (Auto) 10.3 % (1.0-10.0) H Eosinophils (%) (Auto) 4.5 % (0.0-3.0) H Basophils (%) (Auto) 2.1 % (0.0-2.0) H Sodium Level 143 MMOL/L (136-145) Potassium Level 4.0 MMOL/L (3.5-5.1) Chloride Level 109 MMOL/L (98-107) H Carbon Dioxide Level 25 MMOL/L (21-32) Anion Gap 9 mmol/L (5-15) Blood Urea Nitrogen 12 mg/dL (7-18) Creatinine 1.3 MG/DL (0.55-1.30) Estimat Glomerular Filtration Rate 58.2 mL/min (>60) Glucose Level 96 MG/DL (74-106) Hemoglobin A1c 6.1 % (4.3-6.0) H Uric Acid 5.4 MG/DL (2.6-7.2) Calcium Level 8.8 MG/DL (8.5-10.1) Phosphorus Level 3.1 MG/DL (2.5-4.9) Magnesium Level 1.8 MG/DL (1.8-2.4) Total Bilirubin 1.3 MG/DL (0.2-1.0) H Direct Bilirubin 0.3 MG/DL (0.0-0.3) Gamma Glutamyl Transpeptidase 221 U/L (5-85) H Aspartate Amino Transf (AST/SGOT) 38 U/L (15-37) H Alanine Aminotransferase (ALT/SGPT) 44 U/L (12-78) Alkaline Phosphatase 155 U/L (46-116) H Total Creatine Kinase 46 U/L (26-308) Troponin I 0.021 ng/mL (0.000-0.056) Pro-B-Type Natriuretic Peptide 550 pg/mL (0-125) H Total Protein 6.7 G/DL (6.4-8.2) Albumin 2.9 G/DL (3.4-5.0) L Globulin 3.8 g/dL Albumin/Globulin Ratio 0.8 (1.0-2.7) L Triglycerides Level 62 MG/DL (30-150) Cholesterol Level 124 MG/DL (< 200) LDL Cholesterol 88 mg/dL (<100) HDL Cholesterol 37 MG/DL (40-60) L Cholesterol/HDL Ratio 3.4 (3.3-4.4) Vitamin B12 Level 832 PG/ML (193-986) Folate 18.8 NG/ML (8.6-58.9) Thyroid Stimulating Hormone (TSH) 1.492 uiU/mL (0.358-3.740) Microbiology Date/Time Source Procedure Growth Status 07/17/18 09:45 Blood Blood Culture - Preliminary NO GROWTH AFTER 24 HOURS Resulted 07/17/18 09:30 Blood Blood Culture - Preliminary NO GROWTH AFTER 24 HOURS Resulted 07/17/18 09:30 Nasal Nares MRSA Culture - Final NO METHICILLIN RESISTANT STAPH AUREUS... Complete 07/17/18 09:30 Rectum VRE Culture - Final NO VANCOMYCIN RESISTANT ENTEROCOCCUS ... Complete 07/17/18 09:30 Rectum - Final NO CARBAPENEM-RESISTANT ENTEROBACTERI... Complete Objective HEAD AND NECK: No JVD. LUNGS: Clear. CARDIOVASCULAR: Regular S1 and S2 with no gallop or murmur. ABDOMEN: Soft. EXTREMITIES: No pitting edema. Basim Adkins MD Jul 19, 2018 17:19
[2018-07-19 20:00] VITALS: BP 108/67
[2018-07-19] MEDS: Tamsulosin 0.4mg cap ORAL SCH (21:20)
[2018-07-20] VITALS: BP 100/73
--- NOTE | 2018-07-20 02:45 | Progress Note ---
DATE: 07/19/2018 SUBJECTIVE: The patient is complaining of shortness of breath of sudden onset and headaches. He is still on tamsulosin. There have been no syncopal attacks, although he gets lightheaded when he stands up. It does not appear that orthostatic vital signs have been done. He has refused blood drawing today. EEG has not been done either. B12 is pending. He complained of some double vision, blurred vision, hearing loss , muscle weakness. PHYSICAL EXAMINATION: VITAL SIGNS: Blood pressure is 111/79, SpO2 is 96, temperature 97.9, and pulse rate 86 and regular. MENTAL STATUS: He is alert and oriented. Date, he knows it is June. Place, the patient thinks he is at [facility]. CRANIAL NERVE EXAMINATION: CRANIAL NERVES III, IV, AND : Extraocular motility is full. CRANIAL NERVE V: He has decreased sensation in the left V1, V2 and V3. CRANIAL NERVE VII: Facial strength is 5/5. CRANIAL NERVE VIII: Auditory acuity is basically intact. CRANIAL NERVES IX AND X: . CRANIAL NERVE XI: Sternocleidomastoid strength is 5/5. CRANIAL NERVE XII: Tongue protrudes in the midline. MUSCULOSKELETAL: Muscle bulk and tone are probably normal. Strength is 5/5 proximally and distally. Reflexes are trace in the upper and lower extremities with downgoing toes when tested for Babinski response. COORDINATION: Vmwaai-jh-xmvo is intact. Wzad-zw-ejny testing is intact. IMPRESSION: Currently, this patient's syncopal attack is seemingly unclear as history is not very reliable. autonomic neuropathy along with syncopal episodes. thrombosis, but I will obtain the medical records from hospital. Asael Glasgow MD DR: RYANNE JOB#: [id number] CC:
[2018-07-20] MEDS: D5 1/2NS 1,000 ML IV SCH ×3 (02:54→23:50)
[2018-07-20] MEDS: Albuterol/Ipratropium 3ml neb HHN SCH ×6 (03:16→23:27)
[2018-07-20 04:00] VITALS: BP 98/75
[2018-07-20 08:00] VITALS: BP 108/65
[2018-07-20 11:54] VITALS: BP 109/60
--- NOTE | 2018-07-20 13:40 | General Progress Note ---
Assessment/Plan Problem List: (1) MDD (major depressive disorder), recurrent episode, moderate ICD Codes: F33.1 - Major depressive disorder, recurrent, moderate SNOMED: 26439225, 040943645 (2) Anxiety disorder ICD Codes: F41.9 - Anxiety disorder, unspecified SNOMED: 529549258 Assessment/Plan Abilify 15mg po qam Remeron 15mg po qhs Ativan po q 6hr prn anxiety the pt was provided ro/st the script was left in the chart for the pt. Subjective Neurologic/Psychiatric: Reports: anxiety, depressed, emotional problems Allergies: Coded Allergies: No Known Allergies (Unverified , 07/17/18) Subjective The pt is doing better. Objective Last 24 Hour Vital Signs Date Time Temp Pulse Resp B/P (MAP) Pulse Ox O2 Delivery O2 Flow Rate FiO2 07/20/18 11:54 97.1 97 20 109/60 (76) 96 07/20/18 11:00 97 109 110 07/20/18 10:43 96 17 98 Room Air 21 07/20/18 10:33 96 15 96 Room Air 21 07/20/18 09:00 Room Air 07/20/18 08:00 106 07/20/18 08:00 96.9 104 20 108/65 (79) 95 07/20/18 07:40 94 18 99 Room Air 21 07/20/18 07:30 86 17 97 Room Air 07/20/18 04:00 97.7 93 18 98/75 (83) 97 07/20/18 04:00 89 07/20/18 03:26 89 18 98 Room Air 21 07/20/18 03:16 86 18 97 Room Air 21 07/20/18 00:00 97.5 87 18 100/73 (82) 97 07/20/18 00:00 83 07/19/18 23:58 86 18 99 Room Air 21 07/19/18 23:48 88 18 96 Room Air 21 07/19/18 21:00 Room Air 07/19/18 20:00 87 104 103 07/19/18 20:00 97.8 102 18 108/67 (81) 96 07/19/18 20:00 102 07/19/18 19:41 88 18 98 Room Air 21 07/19/18 19:31 94 18 Room Air 21 07/19/18 19:31 91 18 94 Room Air 07/19/18 16:48 86 20 96 Nasal Cannula 2.0 28 07/19/18 16:00 97.9 87 20 111/79 (90) 96 07/19/18 15:27 84 Intake and Output 07/19/18 07/20/18 19:00 07:00 Intake Total 1480 ml 910 ml Output Total 1550 ml Balance -70 ml 910 ml Intake Oral 480 ml IV Total 1000 ml 910 ml Output Urine Total 1550 ml # Voids 2 Height (Feet): 5 Height (Inches): 9.00 Weight (Pounds): 219 General Appearance: WD/WN, no apparent distress, alert Neurologic: oriented x 3, responsive, depressed affect Angela Coleman MD Jul 20, 2018 13:40
[2018-07-20 15:54] VITALS: BP 100/69
--- NOTE | 2018-07-20 16:43 | Nephrology Progress Note ---
Assessment/Plan Problem List: (1) Syncope (2) Dehydration (3) Drug abuse (4) HIV disease Assessment Renal failure, Likely Dehydration normalized Recurrent syncope rule out Sz disorder Obese HIV status h/o Psychosis s/p CVA with left melvin ? Multi drug abuse Plan Hydrate EEG WNL Carotid duplex Neg Monitor renal parameters per orders per psych Subjective ROS Limited/Unobtainable: No Objective Objective Last 24 Hour Vital Signs Date Time Temp Pulse Resp B/P (MAP) Pulse Ox O2 Delivery O2 Flow Rate FiO2 07/20/18 15:54 98.1 104 20 100/69 (79) 96 07/20/18 15:15 98 18 99 Room Air 21 07/20/18 15:01 98 16 95 Room Air 21 07/20/18 12:00 99 07/20/18 11:54 97.1 97 20 109/60 (76) 96 07/20/18 11:00 97 109 110 07/20/18 10:43 96 17 98 Room Air 21 07/20/18 10:33 96 15 96 Room Air 21 07/20/18 09:00 Room Air 07/20/18 08:00 106 07/20/18 08:00 96.9 104 20 108/65 (79) 95 07/20/18 07:40 94 18 99 Room Air 21 07/20/18 07:30 86 17 97 Room Air 07/20/18 04:00 97.7 93 18 98/75 (83) 97 07/20/18 04:00 89 07/20/18 03:26 89 18 98 Room Air 21 07/20/18 03:16 86 18 97 Room Air 21 07/20/18 00:00 97.5 87 18 100/73 (82) 97 07/20/18 00:00 83 07/19/18 23:58 86 18 99 Room Air 21 07/19/18 23:48 88 18 96 Room Air 21 07/19/18 21:00 Room Air 07/19/18 20:00 87 104 103 07/19/18 20:00 97.8 102 18 108/67 (81) 96 07/19/18 20:00 102 07/19/18 19:41 88 18 98 Room Air 21 07/19/18 19:31 94 18 Room Air 21 07/19/18 19:31 91 18 94 Room Air 21 2/21/19 16:48 86 20 96 Nasal Cannula 2.0 28 Intake and Output 07/19/18 07/20/18 19:00 07:00 Intake Total 1480 ml 910 ml Output Total 1550 ml Balance -70 ml 910 ml Intake Oral 480 ml IV Total 1000 ml 910 ml Output Urine Total 1550 ml # Voids 2 Height (Feet): 5 Height (Inches): 9.00 Weight (Pounds): 219 General Appearance: no apparent distress Cardiovascular: normal rate Respiratory/Chest: lungs clear Abdomen: soft Objective no change Rob Mitchell MD Jul 20, 2018 16:43
--- NOTE | 2018-07-20 18:57 | Cardiac Electrophysiology PN ---
Assessment/Plan Assessment/Plan 1. Recurrent syncopal episodes. No arrhythmias on telemetry, Echocardiogram and carotid duplex were negative. Orthostatic vital signs were negative. Neuro evaluation with Dr lGasgow 2. Human immunodeficiency virus, on anti-retroviral therapy. 3. Schizophrenia, on Abilify, Remeron, and Neurontin. 4. 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 DW RN Subjective Subjective No arrhythmias on tele. Nl EF. Objective Last 24 Hour Vital Signs Date Time Temp Pulse Resp B/P (MAP) Pulse Ox O2 Delivery O2 Flow Rate FiO2 07/20/18 15:54 98.1 104 20 100/69 (79) 96 07/20/18 15:15 98 18 99 Room Air 21 07/20/18 15:01 98 16 95 Room Air 21 07/20/18 12:00 99 07/20/18 11:54 97.1 97 20 109/60 (76) 96 07/20/18 11:00 97 109 110 07/20/18 10:43 96 17 98 Room Air 21 07/20/18 10:33 96 15 96 Room Air 21 07/20/18 09:00 Room Air 07/20/18 08:00 106 07/20/18 08:00 96.9 104 20 108/65 (79) 95 07/20/18 07:40 94 18 99 Room Air 21 07/20/18 07:30 86 17 97 Room Air 21 07/20/18 04:00 97.7 93 18 98/75 (83) 97 07/20/18 04:00 89 07/20/18 03:26 89 18 98 Room Air 21 07/20/18 03:16 86 18 97 Room Air 21 07/20/18 00:00 97.5 87 18 100/73 (82) 97 07/20/18 00:00 83 07/19/18 23:58 86 18 99 Room Air 21 07/19/18 23:48 88 18 96 Room Air 21 07/19/18 21:00 Room Air 07/19/18 20:00 87 104 103 07/19/18 20:00 97.8 102 18 108/67 (81) 96 07/19/18 20:00 102 07/19/18 19:41 88 18 98 Room Air 21 07/19/18 19:31 94 18 Room Air 21 2/21/19 19:31 91 18 94 Room Air 21 Intake and Output 07/19/18 07/20/18 19:00 07:00 Intake Total 1480 ml 910 ml Output Total 1550 ml Balance -70 ml 910 ml Intake Oral 480 ml IV Total 1000 ml 910 ml Output Urine Total 1550 ml # Voids 2 Objective HEAD AND NECK: No JVD. LUNGS: Clear. CARDIOVASCULAR: Regular S1 and S2 with no gallop or murmur. ABDOMEN: Soft. EXTREMITIES: No pitting edema. Basim Adkins MD Jul 20, 2018 18:57
--- NOTE | 2018-07-20 19:12 | General Progress Note ---
Assessment/Plan Problem List: (1) Syncope ICD Codes: R55 - Syncope and collapse SNOMED: 033214924 (2) Anxiety disorder ICD Codes: F41.9 - Anxiety disorder, unspecified SNOMED: 713558239 (3) MDD (major depressive disorder), recurrent episode, moderate ICD Codes: F33.1 - Major depressive disorder, recurrent, moderate SNOMED: 11962306, 936363414 Status: progressing Assessment/Plan syncopal work up in progress vitals stable no siezure eeg is done Subjective ROS Limited/Unobtainable: Yes Constitutional: Reports: no symptoms Allergies: Coded Allergies: No Known Allergies (Unverified , 07/17/18) Objective Last 24 Hour Vital Signs Date Time Temp Pulse Resp B/P (MAP) Pulse Ox O2 Delivery O2 Flow Rate FiO2 07/20/18 15:54 98.1 104 20 100/69 (79) 96 07/20/18 15:15 98 18 99 Room Air 21 07/20/18 15:01 98 16 95 Room Air 21 07/20/18 12:00 99 07/20/18 11:54 97.1 97 20 109/60 (76) 96 07/20/18 11:00 97 109 110 07/20/18 10:43 96 17 98 Room Air 21 07/20/18 10:33 96 15 96 Room Air 21 07/20/18 09:00 Room Air 07/20/18 08:00 106 07/20/18 08:00 96.9 104 20 108/65 (79) 95 07/20/18 07:40 94 18 99 Room Air 21 07/20/18 07:30 86 17 97 Room Air 07/20/18 04:00 97.7 93 18 98/75 (83) 97 07/20/18 04:00 89 07/20/18 03:26 89 18 98 Room Air 21 07/20/18 03:16 86 18 97 Room Air 21 07/20/18 00:00 97.5 87 18 100/73 (82) 97 07/20/18 00:00 83 07/19/18 23:58 86 18 99 Room Air 21 07/19/18 23:48 88 18 96 Room Air 21 07/19/18 21:00 Room Air 07/19/18 20:00 87 104 103 07/19/18 20:00 97.8 102 18 108/67 (81) 96 07/19/18 20:00 102 07/19/18 19:41 88 18 98 Room Air 21 07/19/18 19:31 94 18 Room Air 21 07/19/18 19:31 91 18 94 Room Air 21 Intake and Output 07/19/18 07/20/18 18:59 06:59 Intake Total 1480 ml 910 ml Output Total 1550 ml Balance -70 ml 910 ml Intake Oral 480 ml IV Total 1000 ml 910 ml Output Urine Total 1550 ml # Voids 2 Height (Feet): 5 Height (Inches): 9.00 Weight (Pounds): 219 General Appearance: alert Neck: supple Cardiovascular: normal rate Abdomen: soft Rosalia Alexander MD Jul 20, 2018 19:12
--- NOTE | 2018-07-20 19:15 | Electroencephalogram ---
DATE OF TRACIN07/18/2018 REQUESTING PHYSICIANS: Rosalia Alexander M.D. & Rob Mitchell M.D. READING PHYSICIAN: Saul Zurita M.D. HISTORY: This EEG was performed on a 53-year-old gentleman who had an episode of loss of consciousness. The purpose of this EEG was to evaluate the patient for the degree and type of cerebral dysfunction. At this point in time, the patient is on unknown doses of Neurontin and Abilify. TECHNICAL NOTE: This EEG was performed on a [employer] with electrodes placed on the scalp according to the International 10-20 system. Jweac-cg-mzeyi and eabgg-mx-qhp montages were used. The EEG was technically satisfactory and was performed in the awake, drowsy, and sleep states. OBSERVATIONS: In the best awake state, the background activity consisted predominantly of 7-7.5 Hz posterior rhythmic theta activity. Some 8 Hz alpha frequencies were also seen. Drowsiness was characterized by dissolution of the posterior dominant rhythm and the appearance of slower frequencies in the 5-6 Hz theta range. Stage II sleep was characterized by further slowing of the background in the delta and theta range, the presence of vertex waves, and 16 Hz sleep spindles. No definite focal abnormalities or epileptiform discharges were seen. IMPRESSION: This is an abnormal EEG characterized by slowing of the background in the 7-7.5 Hz theta range with some intermixed alpha frequencies. COMMENT: This study is consistent with an encephalopathy of a mild degree. Clinical correlation is recommended. Saul Zurita M.D., M.S.P.H. DR: LYNDA JOB#: [id number] MTDD
[2018-07-20 20:00] VITALS: BP 95/80
[2018-07-20] MEDS: Tamsulosin 0.4mg cap ORAL SCH (20:26)
[2018-07-20] MEDS ORDERED: D5 1/2NS 1000ml IV ONE (20:38)
--- NOTE | 2018-07-20 23:00 | Progress Note ---
DATE: 07/20/2018 SUBJECTIVE: The patient has not had any things, but complains of a lot of shortness of breath, which comes on suddenly. His EEG was normal. So far, he has no orthostasis based on his pulse. OBJECTIVE: His EEG is a normal study. IMPRESSION: This patient has syncopal episodes assuming his history is accurate, which is questionable. His electrophysiologic data is also normal so far. PLAN: 1. The patient is to increase his fluid and salt intake. The patient may need a loop recorder, but I will leave that up to the basic sciences professor, Dr. Adkins to decide. His B12 level was normal 832. 2. We want to do more aggressive cardiac monitoring. 3. I would probably reduce his tamsulosin. If possible, I will discuss the case with Urology. Asael Glasgow MD DR: RYANNE JOB#: [id number] CC:
[2018-07-21] VITALS: BP 104/73
[2018-07-21] MEDS: Albuterol/Ipratropium 3ml neb HHN SCH ×3 (02:22→10:56)
[2018-07-21 04:00] VITALS: BP 128/78
[2018-07-21 07:46] LABS: ALANINE AMINOTRANSFERASE 47 U/L (12-78); ALBUMIN 2.9 G/DL (3.4-5.0); ALBUMIN/GLOBULIN RATIO 0.8 (1.0-2.7); ALKALINE PHOSPHATASE 165 U/L (46-116); ANION GAP 6 mmol/L (5-15); ASPARTATE AMINO TRANSFERASE 39 U/L (15-37); BILIRUBIN,TOTAL 1.2 MG/DL (0.2-1.0); BLOOD UREA NITROGEN 13 mg/dL (7-18); CALCIUM 9.6 MG/DL (8.5-10.1); CARBON DIOXIDE 27 MMOL/L (21-32); CHLORIDE 107 MMOL/L (98-107); CREATININE 1.3 MG/DL (0.55-1.30); PHOSPHORUS 4.3 MG/DL (2.5-4.9); POTASSIUM 4.2 MMOL/L (3.5-5.1); SODIUM 140 MMOL/L (136-145)
[2018-07-21 07:49] LABS: BILIRUBIN,DIRECT 0.3 MG/DL (0.0-0.3)
[2018-07-21 08:00] VITALS: BP 88/62
[2018-07-21] MEDS: D5 1/2NS 1,000 ML IV SCH (11:04)
[2018-07-21 12:00] VITALS: BP 102/69
[2018-07-21] MEDS ORDERED: Magnesium Oxide 400mg tab ORAL SCH (13:00)
--- NOTE | 2018-07-21 13:07 | Cardiac Electrophysiology PN ---
Assessment/Plan Assessment/Plan 1. Recurrent syncopal episodes. No arrhythmias on telemetry, Echocardiogram and carotid duplex were negative. Orthostatic vital signs were negative. Neuro evaluation with Dr Glasgow ongoing 2. Human immunodeficiency virus, on anti-retroviral therapy. 3. Schizophrenia, on Abilify, Remeron, and Neurontin. 4. 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 DW RN DC planning Subjective Subjective Remained in SR. No events. Nl EF. Objective Last 24 Hour Vital Signs Date Time Temp Pulse Resp B/P (MAP) Pulse Ox O2 Delivery O2 Flow Rate FiO2 07/21/18 10:58 97 18 95 Room Air 21 07/21/18 10:55 96 16 92 Room Air 21 07/21/18 08:30 95 98 94 07/21/18 08:25 Room Air 07/21/18 08:00 98.4 106 19 88/62 (71) 95 07/21/18 07:49 98 18 96 Room Air 21 07/21/18 07:49 98 16 95 Room Air 21 07/21/18 07:45 102 07/21/18 04:00 102 07/21/18 04:00 98.6 72 20 128/78 (95) 94 07/21/18 02:28 95 18 95 Room Air 21 07/21/18 02:25 96 16 92 Room Air 21 07/21/18 00:00 98.2 100 20 104/73 (83) 94 07/21/18 00:00 98 07/20/18 23:37 95 18 99 Room Air 21 07/20/18 23:28 96 16 94 Room Air 21 07/20/18 21:00 Room Air 07/20/18 20:00 98 07/20/18 20:00 99.0 94 20 95/80 (85) 95 07/20/18 19:40 96 18 99 Room Air 21 07/20/18 19:35 95 16 94 Room Air 21 07/20/18 16:00 102 07/20/18 15:54 98.1 104 20 100/69 (79) 96 07/20/18 15:15 98 18 99 Room Air 21 07/20/18 15:01 98 16 95 Room Air 21 Intake and Output 07/20/18 07/21/18 19:00 07:00 Intake Total 1900 ml 1100 ml Output Total 2450 ml 2000 ml Balance -550 ml -900 ml Intake Oral 800 ml IV Total 1100 ml 1100 ml Output Urine Total 2450 ml 2000 ml # Voids 5 5 Laboratory Tests Test 07/20/18 20:35 07/21/18 05:56 C-Reactive Protein, Quantitative < 0.4 mg/dL (0.00-0.90) Sodium Level 140 MMOL/L (136-145) Potassium Level 4.2 MMOL/L (3.5-5.1) Chloride Level 107 MMOL/L (98-107) Carbon Dioxide Level 27 MMOL/L (21-32) Anion Gap 6 mmol/L (5-15) Blood Urea Nitrogen 13 mg/dL (7-18) Creatinine 1.3 MG/DL (0.55-1.30) Estimat Glomerular Filtration Rate 58.2 mL/min (>60) Glucose Level 108 MG/DL (74-106) H Calcium Level 9.6 MG/DL (8.5-10.1) Phosphorus Level 4.3 MG/DL (2.5-4.9) Magnesium Level 1.6 MG/DL (1.8-2.4) L Total Bilirubin 1.2 MG/DL (0.2-1.0) H Direct Bilirubin 0.3 MG/DL (0.0-0.3) Aspartate Amino Transf (AST/SGOT) 39 U/L (15-37) H Alanine Aminotransferase (ALT/SGPT) 47 U/L (12-78) Alkaline Phosphatase 165 U/L (46-116) H Pro-B-Type Natriuretic Peptide 439 pg/mL (0-125) H Total Protein 6.5 G/DL (6.4-8.2) Albumin 2.9 G/DL (3.4-5.0) L Globulin 3.6 g/dL Albumin/Globulin Ratio 0.8 (1.0-2.7) L Objective HEAD AND NECK: No JVD. LUNGS: Clear. CARDIOVASCULAR: Regular S1 and S2 with no gallop or murmur. ABDOMEN: Soft. EXTREMITIES: No pitting edema. Basim Adkins MD Jul 21, 2018 13:07
--- NOTE | 2018-07-21 14:45 | General Progress Note ---
Assessment/Plan Problem List: (1) Syncope ICD Codes: R55 - Syncope and collapse SNOMED: 631420656 (2) Anxiety disorder ICD Codes: F41.9 - Anxiety disorder, unspecified SNOMED: 812270950 (3) MDD (major depressive disorder), recurrent episode, moderate ICD Codes: F33.1 - Major depressive disorder, recurrent, moderate SNOMED: 29836233, 619066262 Status: progressing Assessment/Plan cleared by consultants so dc home no siezure eeg is done Subjective ROS Limited/Unobtainable: Yes Allergies: Coded Allergies: No Known Allergies (Unverified , 07/17/18) Objective Last 24 Hour Vital Signs Date Time Temp Pulse Resp B/P (MAP) Pulse Ox O2 Delivery O2 Flow Rate FiO2 07/21/18 13:42 105 07/21/18 12:00 97.9 107 18 102/69 (80) 95 07/21/18 10:58 97 18 95 Room Air 21 07/21/18 10:55 96 16 92 Room Air 21 07/21/18 08:30 95 98 94 07/21/18 08:25 Room Air 07/21/18 08:00 98.4 106 19 88/62 (71) 95 07/21/18 07:49 98 18 96 Room Air 21 07/21/18 07:49 98 16 95 Room Air 21 07/21/18 07:45 102 07/21/18 04:00 102 07/21/18 04:00 98.6 72 20 128/78 (95) 94 07/21/18 02:28 95 18 95 Room Air 21 07/21/18 02:25 96 16 92 Room Air 21 07/21/18 00:00 98.2 100 20 104/73 (83) 94 07/21/18 00:00 98 07/20/18 23:37 95 18 99 Room Air 21 07/20/18 23:28 96 16 94 Room Air 21 07/20/18 21:00 Room Air 07/20/18 20:00 98 07/20/18 20:00 99.0 94 20 95/80 (85) 95 07/20/18 19:40 96 18 99 Room Air 21 07/20/18 19:35 95 16 94 Room Air 21 07/20/18 16:00 102 07/20/18 15:54 98.1 104 20 100/69 (79) 96 07/20/18 15:15 98 18 99 Room Air 21 07/20/18 15:01 98 16 95 Room Air 21 Intake and Output 07/20/18 07/21/18 19:00 07:00 Intake Total 1900 ml 1100 ml Output Total 2450 ml 2000 ml Balance -550 ml -900 ml Intake Oral 800 ml IV Total 1100 ml 1100 ml Output Urine Total 2450 ml 2000 ml # Voids 5 5 Laboratory Tests 07/20/18 20:35: C-Reactive Protein, Quantitative < 0.4 07/21/18 05:56: Sodium Level 140, Potassium Level 4.2, Chloride Level 107, Carbon Dioxide Level 27, Anion Gap 6, Blood Urea Nitrogen 13, Creatinine 1.3, Estimat Glomerular Filtration Rate 58.2, Glucose Level 108H, Calcium Level 9.6, Phosphorus Level 4.3, Magnesium Level 1.6L, Total Bilirubin 1.2H, Direct Bilirubin 0.3, Aspartate Amino Transf (AST/SGOT) 39H, Alanine Aminotransferase (ALT/SGPT) 47, Alkaline Phosphatase 165H, Pro-B-Type Natriuretic Peptide 439H, Total Protein 6.5, Albumin 2.9L, Globulin 3.6, Albumin/Globulin Ratio 0.8L Height (Feet): 5 Height (Inches): 9.00 Weight (Pounds): 219 Cardiovascular: regular rhythm Respiratory/Chest: lungs clear Rosalia Alexander MD Jul 21, 2018 14:45
--- NOTE | 2018-07-21 15:02 | Nephrology Progress Note ---
Assessment/Plan Problem List: (1) Syncope (2) Dehydration (3) Drug abuse (4) HIV disease Assessment asymptomatic low bp Renal failure, Likely Dehydration normalized Recurrent syncope rule out Sz disorder Obese HIV status h/o Psychosis s/p CVA with left melvin ? Multi drug abuse Plan mag supplement Hydrate EEG WNL Carotid duplex Neg Monitor renal parameters per orders per psych Subjective ROS Limited/Unobtainable: No Objective Objective Last 24 Hour Vital Signs Date Time Temp Pulse Resp B/P (MAP) Pulse Ox O2 Delivery O2 Flow Rate FiO2 07/21/18 13:42 105 07/21/18 12:00 97.9 107 18 102/69 (80) 95 07/21/18 10:58 97 18 95 Room Air 21 07/21/18 10:55 96 16 92 Room Air 21 07/21/18 08:30 95 98 94 07/21/18 08:25 Room Air 07/21/18 08:00 98.4 106 19 88/62 (71) 95 07/21/18 07:49 98 18 96 Room Air 21 07/21/18 07:49 98 16 95 Room Air 21 07/21/18 07:45 102 07/21/18 04:00 102 07/21/18 04:00 98.6 72 20 128/78 (95) 94 07/21/18 02:28 95 18 95 Room Air 21 07/21/18 02:25 96 16 92 Room Air 21 07/21/18 00:00 98.2 100 20 104/73 (83) 94 07/21/18 00:00 98 07/20/18 23:37 95 18 99 Room Air 21 07/20/18 23:28 96 16 94 Room Air 21 07/20/18 21:00 Room Air 07/20/18 20:00 98 07/20/18 20:00 99.0 94 20 95/80 (85) 95 07/20/18 19:40 96 18 99 Room Air 21 07/20/18 19:35 95 16 94 Room Air 21 07/20/18 16:00 102 07/20/18 15:54 98.1 104 20 100/69 (79) 96 07/20/18 15:15 98 18 99 Room Air 21 Intake and Output 07/20/18 07/21/18 19:00 07:00 Intake Total 1900 ml 1100 ml Output Total 2450 ml 2000 ml Balance -550 ml -900 ml Intake Oral 800 ml IV Total 1100 ml 1100 ml Output Urine Total 2450 ml 2000 ml # Voids 5 5 Laboratory Tests 07/20/18 20:35: C-Reactive Protein, Quantitative < 0.4 07/21/18 05:56: Sodium Level 140, Potassium Level 4.2, Chloride Level 107, Carbon Dioxide Level 27, Anion Gap 6, Blood Urea Nitrogen 13, Creatinine 1.3, Estimat Glomerular Filtration Rate 58.2, Glucose Level 108H, Calcium Level 9.6, Phosphorus Level 4.3, Magnesium Level 1.6L, Total Bilirubin 1.2H, Direct Bilirubin 0.3, Aspartate Amino Transf (AST/SGOT) 39H, Alanine Aminotransferase (ALT/SGPT) 47, Alkaline Phosphatase 165H, Pro-B-Type Natriuretic Peptide 439H, Total Protein 6.5, Albumin 2.9L, Globulin 3.6, Albumin/Globulin Ratio 0.8L Height (Feet): 5 Height (Inches): 9.00 Weight (Pounds): 219 General Appearance: no apparent distress Objective no change Rob Mitchell MD Jul 21, 2018 15:02
[2018-07-21] MEDS ORDERED: D5 1/2NS 1000ml IV ONE (15:04)
--- NOTE | 2018-07-22 14:55 | Discharge Summary ---
Discharge Summary Discharge Summary _ DATE OF ADMISSION: 07/17/2018 DATE OF DISCHARGE: 07/21/2018 DISCHARGED BY: Dr Alexander REASON FOR ADMISSION: 53 years old male with history of HIV with undetectable viral load ( as per patient), history of CVA 2 years ago with left sided weakness, presented to emergency department with recurrent episodes of syncope. Upon evaluation in emergency department vital signs were stable Laboratory workup revealed no leukocytosis, stable hemoglobin and hematocrit, stable electrolytes, BUN 21, creatinine 1.5. Glucose 81. Lactic acid 4.0. Stable LFT. Troponin -0.023., EKG revealed normal sinus rhythm no acute ischemic changes. ProBNP 581. Lipase 38. Urinalysis revealed no evidence of UTI. Urine toxicology screen was positive for marijuana and amphetamine. Chest x-ray revealed no evidence of acute cardiopulmonary pathology. Patient admitted for evaluation of recurrent syncopal episode. CONSULTANTS: deodorizer operator Dr. Corrigan neurologist Dr. Glasgow dental laboratory manager Dr. Mitchell psychiatrist [facility]: Patient admitted to telemetry floor. [employer] and neurologist closely followed. Echocardiogram revealed preserved ejection fraction 50-55% with no evidence of left ventricular hypertrophy. No evidence of pericardial effusion. No evidence of wall motion abnormality. Moderate to severe tricuspid regurgitation noted. Right ventricular systolic pressure of 94 consistent with severe pulmonary hypertension. Carotid duplex was essentially unremarkable. Lipid panel revealed stable cholesterol and triglycerides. TSH , folate, B12 were all within normal limits. Patient subsequently had EEG , with results consistent with encephalopathy of mild degree. Neurologist recommended increase fluid and salt intake, and recommend to decrease Flomax dose after consulting with patient outpatient urologist. Telemetry stable, no evidence of arrhythmias. Stable carotid duplex and echocardiogram. No evidence of orthostatic changes. [employer] Processor followed for initial renal failure, which was likely due to dehydration and normalized with IV hydration. Creatinine from 1.5 down to normal. Renal parameters and electrolytes were closely monitored, electrolytes corrected as needed. Nephrotoxins were avoided. Patient was hydrated. Psychiatrist follow. Per psychiatrist patient had major depressive disorder and anxiety disorder. Psychiatric medication regimen was optimized. Reality orientation supportive therapy provided. Patient was stabilized and ready for discharge home FINAL DIAGNOSES: Recurrent syncopal episodes likely due to dehydration Dehydration Renal failure, likely due to dehydration -resolved Drug abuse/amphetamine, marijuana HIV status Schizophrenia History of CVA with a left hemiplegia Encephalopathy of a mild degree Major depressive disorder, recurrent episode, moderate Anxiety disorder DISCHARGE MEDICATIONS: See Medication Reconciliation list. DISCHARGE INSTRUCTIONS: Patient was discharged home. Follow up with primary care provider in one week. I have been assigned to dictate discharge summary for this account. I was not involved in the patient's management. Orin Dasilva NP Jul 22, 2018 14:55
== END 2018-07-21 15:05 | disposition home or self-care (01) | DRG 890 ==
LOC: EMR 09:15 → 2E 10:40 → EDBEDREQ 10:45 → EDBEDREQSVC 10:45 → EDBEDREQ 10:46 → EDBEDREQSVC 10:46 → EDBEDREQ 12:25
DX: E86.0 Dehydration (principal); B20 Human immunodeficiency virus [HIV] disease; G93.40 Encephalopathy, unspecified; N19 Unspecified kidney failure; C46.7 Kaposi's sarcoma of other sites; F20.9 Schizophrenia, unspecified; I27.20 Pulmonary hypertension, unspecified; F33.1 Major depressive disorder, recurrent, moderate; I69.354 Hemiplegia and hemiparesis following cerebral infarction affecting left non-dominant side; R55 Syncope and collapse; F12.10 Cannabis abuse, uncomplicated; F41.9 Anxiety disorder, unspecified; F15.10 Other stimulant abuse, uncomplicated; E78.5 Hyperlipidemia, unspecified; J44.9 Chronic obstructive pulmonary disease, unspecified; R73.03 Prediabetes; I36.1 Nonrheumatic tricuspid (valve) insufficiency
CPT/HCPCS: 36415; 36600; 71045; 80053; 80061; 80307; 81003; 82248; 82550; 82553; 82607; 82746; 82977; 83036; 83605; 83690; 83735; 83880; 84100; 84439; 84443; 84484; 84550; 85025; 86140; 87040; 87081; 93005; 93306; 93880; 94640; 94664; 95819; 96360; 96361; 99285; J7620